=== PATIENT | male | born 1965 | race Two or more races ===

== ENCOUNTER 2021-05-23 12:24 | Inpatient (IN) | payer MEDICAID, OTHER ==
[~2021-05-23] VITALS: Ht 177.8 cm; Wt 98.9 kg
[2021-05-23 14:00] LABS: Hemoglobin 14.9 g/dL (13.5-17.5)
[2021-05-23 14:03] LABS: Hematocrit 43.1 % (41.0-53.0); Mean Corpuscular Hemoglobin 34.3 pg (28.0-32.0); Mean Corpuscular Hgb Conc. 34.6 g/dL (32.0-36.0); Mean Corpuscular Volume 99.4 fL (80.0-100.0); Red Blood Cells 4.34 10^6/uL (4.5-5.90); Red Cell Distribution Width 16.8 % (11.8-14.3); White Blood Cell 8.5 10^3/uL (4.4-10.8)
[2021-05-23 14:10] LABS: Basophils % (manual) 0 (0.0-2.0); Blast Cells 0; Eosinophils % (manual) 0 (0-7); Myelocytes % 0; Promyelocytes % 0; Reactive Lymphocytes 0
[2021-05-23 14:25] LABS: Band Neutrophils % (manual) 35; Lymphocytes % (manual) 7 (10.0-50.0); Metamyelocytes % 2; Monocytes % (manual) 9 (0-12)
[2021-05-23 14:27] LABS: Albumin 2.7 g/dL (3.4-5.0); Calcium 8.9 mg/dL (8.5-10.1); Magnesium 2.3 mg/dL (1.6-2.6); Potassium 3.5 mmol/L (3.5-5.1)
[2021-05-23 14:43] LABS: Total Protein 8.9 g/dL (6.4-8.2)
[2021-05-23] MEDS ORDERED: ASCORBIC ACID 500 MG TAB PO ONE (14:45)
[2021-05-23] MEDS ORDERED: CHOLECALCIFEROL (VITD3) 2,000 UNIT CAP/TAB PO ONE (14:45)
[2021-05-23] MEDS ORDERED: cefTRIAXone 1GM/50ML D5W 50 ML IV ONE (14:45)
[2021-05-23] MEDS ORDERED: DexAMETHasone SOD PHOS 10MG/1ML VIAL INJ IV ONE (14:45)
[2021-05-23] MEDS ORDERED: AZITHROMYCIN 500MG/ 250ML 250 ML IV ONE (14:45)
[2021-05-23] MEDS ORDERED: ZINC SULFATE 220mg CAP or TAB PO ONE (14:45)
[2021-05-23 16:30] LABS: Urine Bacteria NONE SEEN /hpf (None Seen); Urine Blood TRACE /uL (Negative); Urine Hyaline Cast FEW /lpf (0 - 2); Urine Mucus FEW (None Seen); Urine Specific Gravity 1.025 (1.001-1.035); Urine WBC 2 /hpf (0 - 3)
[2021-05-23] MEDS ORDERED: MORPHINE SULFATE INJECTION 2 MG/ML SYRG IV PRN (16:45)
[2021-05-23] MEDS ORDERED: HYDROcodone-ACET 5/325MG TAB PO ONE (16:45)
[2021-05-23] MEDS ORDERED: NITROGLYCERIN 0.4 MG SL TAB SL PRN (16:45)
[2021-05-23] MEDS ORDERED: HYDR-4795 PO (16:57)
[2021-05-23] MEDS ORDERED: OMEP20TA PO (17:01)
[2021-05-23 22:00] VITALS: BP 117/80
[2021-05-24] MEDS ORDERED: IBUPROFEN 600 MG TAB PO ONE (00:45)
[2021-05-24] MEDS ORDERED: FAMOTIDINE (10MG/ML) 2ML VL IV ONE (01:00)
[2021-05-24] MEDS ORDERED: REMDESIVIR PER PHARMACY 0 ML IV SCH (01:00)
[2021-05-24] MEDS ORDERED: MORPHINE SULFATE INJECTION 2 MG/ML SYRG IV PRN ×2 (01:00)
[2021-05-24] MEDS ORDERED: ACETAMINOPHEN 500 MG TAB PO PRN (01:00)
[2021-05-24] MEDS ORDERED: ONDANSETRON HCL 4 MG/2 ML VIAL IV PRN (01:00)
[2021-05-24] MEDS ORDERED: ALUM & MAG HYDROX-SIMETH LIQ(MAALOX) 30 ML PO PRN (01:00)
[2021-05-24] MEDS ORDERED: DOCUSATE SOD 100 MG CAP PO PRN (01:00)
[2021-05-24] MEDS ORDERED: LORazepam 0.5 MG TAB PO PRN (01:00)
[2021-05-24] MEDS ORDERED: NITROGLYCERIN 0.4 MG SL TAB SL PRN (01:00)
[2021-05-24] MEDS ORDERED: ALBUMIN 25% 100 ML IV ONE (01:00)
[2021-05-24] MEDS ORDERED: hydrALAZINE HCL 20 MG/ML VL IV PRN (01:15)
[2021-05-24] MEDS: guaiFENesin-DM 100/10mg/5ml SYR PO PRN ×4 (01:20→23:12)
[2021-05-24] MEDS: HYDROcodone-ACET 5/325MG TAB PO PRN ×4 (01:21→21:03)
[2021-05-24 05:50] VITALS: BP 106/74
[2021-05-24] MEDS ORDERED: ALBUMIN 25% 100 ML IV SCH (06:00)
[2021-05-24] MEDS: FUROSEMIDE 20 MG/2 ML VIAL IV SCH ×2 (06:08→17:49)
[2021-05-24 06:34] LABS: Basophils # (auto) 0 10 ^3/uL (0-0.2); Basophils % (auto) 0.1 % (0.0-2.0); Eosinophils # (auto) 0 10 ^3/uL (0-0.8); Lymphocytes # (auto) 0.2 10 ^3/uL (0.4-5.4); Lymphocytes % (auto) 2.5 % (10.0-50.0); Mean Corpuscular Hemoglobin 34.1 pg (28.0-32.0); Mean Corpuscular Volume 100.4 fL (80.0-100.0); Monocytes # (auto) 1.2 10 ^3/uL (0-1.3); Monocytes % (auto) 13.2 % (0.0-12.0); Neutrophils # (auto) 7.5 10 ^3/uL (1.6-8.6); Neutrophils % (auto) 84.2 % (37.0-80.0); Nucleated Red Blood Cells % 0.2 %; Red Blood Cells 4.39 10^6/uL (4.5-5.90); Red Cell Distribution Width 16.1 % (11.8-14.3); White Blood Cell 8.9 10^3/uL (4.4-10.8)
[2021-05-24 06:43] LABS: INR 0.99 (0.9-1.15); Partial Thromboplastin Time 26.3 sec (23.6-33.0)
[2021-05-24 06:52] LABS: Chloride 93 mmol/L (98-107); Potassium 3.8 mmol/L (3.5-5.1); Sodium 130 mmol/L (136-145)
[2021-05-24 07:01] LABS: Alanine Aminotransferase 46 U/L (16-61); Albumin 2.9 g/dL (3.4-5.0); Alkaline Phosphatase 75 U/L (45-117); Anion Gap 5 (5-15); Aspartate Aminotransferase 74 U/L (15-37); BUN/Creatinine Ratio 14.3; Bilirubin, Total 0.9 mg/dL (0.2-1.0); Blood Urea Nitrogen 13 mg/dL (7-18); Calcium 9.3 mg/dL (8.5-10.1); Carbon Dioxide 32 mmol/L (21-32); Cholesterol 108 mg/dL (< 200); GFR African American 112 mL/min; GFR Non-African American 92 mL/min; Glucose 271 mg/dL (74-106); HDL Cholesterol 30 mg/dL (40-59); LDL Cholesterol 64 mg/dL (< 100); Magnesium 3.2 mg/dL (1.6-2.6); Phosphorus 2.2 mg/dL (2.5-4.90); Total Protein 8.8 g/dL (6.4-8.2); Triglycerides 94 mg/dL (< 150); Uric Acid 6.7 mg/dL (3.5-7.2)
[2021-05-24 07:17] LABS: Thyroid Stimulating Hormone 0.34 uIU/mL (0.358-3.74)
[2021-05-24 09:00] VITALS: BP 114/82
[2021-05-24 09:37] LABS: Free T3 2.38 pg/mL (2.3-4.2); Free T4 (Free Thyroxine) 1.29 ng/dL (0.89-1.76)
[2021-05-24] MEDS: FAMOTIDINE (10MG/ML) 2ML VL IV SCH ×2 (09:50→21:01)
[2021-05-24] MEDS: CHOLECALCIFEROL (VITD3) 2,000 UNIT CAP/TAB PO SCH (09:51)
[2021-05-24] MEDS: ASCORBIC ACID 1,000 MG TAB PO SCH (09:51)
[2021-05-24] MEDS: ENOXAPARIN SOD 40 MG/0.4 ML SYRINGE SC SCH ×2 (09:51→21:02)
[2021-05-24] MEDS: DexAMETHasone SOD PHOS 10MG/1ML VIAL INJ IV SCH (09:51)
[2021-05-24] MEDS: ZINC SULFATE 220mg CAP or TAB PO SCH (09:51)
[2021-05-24] MEDS: ASPirin 81 mg TAB PO SCH (09:51)
[2021-05-24] MEDS: IVERMECTIN 3 MG TAB PO SCH (09:51)
[2021-05-24] MEDS: BUDESONIDE (INHALATION) 180 MCG IH IN SCH ×2 (10:00→19:38)
[2021-05-24] MEDS ORDERED: POTASSIUM CHL 20 Meq TABLET PO SCH (10:00)
[2021-05-24] MEDS ORDERED: REMDESIVIR 200 MG in NS 210ml LOADING DOSE ADULT IV ONE (10:00)
[2021-05-24] MEDS ORDERED: AZITHROMYCIN 500MG/ 250ML 250 ML IV SCH (10:00)
[2021-05-24 10:26] LABS: CRP High Sensitivity > 19.0 mg/dL (< 0.3)
[2021-05-24 13:00] VITALS: BP 112/71
[2021-05-24] MEDS ORDERED: DEXTROSE (50%) 50ML SYRG IV PRN (14:00)
[2021-05-24 16:02] LABS: Hepatitis B Surface Antibody Negative (Negative)
[2021-05-24 16:41] LABS: Hepatitis A Total Antibody Negative (Negative)
[2021-05-24 16:50] LABS: Hepatitis C Antibody Positive (Negative)
[2021-05-24 17:07] VITALS: BP 115/79
[2021-05-24] MEDS: InsuLIN REG 1unit/0.01ml Soln (100units/ml) SC SCH ×2 (17:44→23:21)
[2021-05-24] MEDS: ACCU-CHEK COMFORT CURVE STRIP VI SCH ×2 (17:44→23:25)
[2021-05-24] MEDS: ALBUTEROL SULF HFA 90MCG INH 200DOSE IN PRN (19:38)
[2021-05-24] MEDS: POTASSIUM CHL 10 Meq TABLET PO SCH (21:02)
[2021-05-24] MEDS ORDERED: ATORVASTATIN 20 MG TAB PO SCH (22:00)
[2021-05-24 22:07] VITALS: BP 115/73
[2021-05-25] MEDS: HYDROcodone-ACET 5/325MG TAB PO PRN ×3 (03:41→22:37)
[2021-05-25 05:00] VITALS: BP 116/86
[2021-05-25] MEDS: FUROSEMIDE 20 MG/2 ML VIAL IV SCH ×2 (05:12→18:07)
[2021-05-25] MEDS: ACCU-CHEK COMFORT CURVE STRIP VI SCH ×4 (05:13→22:52)
[2021-05-25] MEDS: InsuLIN REG 1unit/0.01ml Soln (100units/ml) SC SCH ×4 (05:21→22:56)
[2021-05-25 06:07] LABS: Basophils # (auto) 0 10 ^3/uL (0-0.2); Basophils % (auto) 0.1 % (0.0-2.0); Eosinophils # (auto) 0 10 ^3/uL (0-0.8); Hematocrit 40.6 % (41.0-53.0); Hemoglobin 13.8 g/dL (13.5-17.5); Lymphocytes # (auto) 0.4 10 ^3/uL (0.4-5.4); Lymphocytes % (auto) 3.3 % (10.0-50.0); Mean Corpuscular Hemoglobin 33.9 pg (28.0-32.0); Mean Corpuscular Hgb Conc. 33.9 g/dL (32.0-36.0); Mean Corpuscular Volume 100.1 fL (80.0-100.0); Monocytes # (auto) 1.5 10 ^3/uL (0-1.3); Monocytes % (auto) 12.9 % (0.0-12.0); Neutrophils % (auto) 83.7 % (37.0-80.0); Red Blood Cells 4.05 10^6/uL (4.5-5.90); Red Cell Distribution Width 16.4 % (11.8-14.3); White Blood Cell 11.9 10^3/uL (4.4-10.8)
[2021-05-25 06:30] LABS: INR 0.95 (0.9-1.15); Potassium 3.7 mmol/L (3.5-5.1)
[2021-05-25 06:37] LABS: Thyroid Stimulating Hormone 0.32 uIU/mL (0.358-3.74)
[2021-05-25 06:53] LABS: BUN/Creatinine Ratio 29.3; Bilirubin, Direct 0.3 mg/dL (0-0.2); Bilirubin, Total 0.5 mg/dL (0.2-1.0); CRP High Sensitivity 9.62 mg/dL (< 0.3); Calcium 9.6 mg/dL (8.5-10.1); Magnesium 2.2 mg/dL (1.6-2.6); Total Protein 7.5 g/dL (6.4-8.2)
[2021-05-25] MEDS: BUDESONIDE (INHALATION) 180 MCG IH IN SCH ×2 (07:18→22:00)
[2021-05-25 09:00] VITALS: BP 111/86
[2021-05-25] MEDS: ZINC SULFATE 220mg CAP or TAB PO SCH (10:00)
[2021-05-25] MEDS: DexAMETHasone SOD PHOS 10MG/1ML VIAL INJ IV SCH (11:09)
[2021-05-25] MEDS: FAMOTIDINE (10MG/ML) 2ML VL IV SCH ×2 (11:10→22:35)
[2021-05-25] MEDS: IVERMECTIN 3 MG TAB PO SCH (11:10)
[2021-05-25] MEDS: POTASSIUM CHL 10 Meq TABLET PO SCH ×2 (11:10→22:36)
[2021-05-25] MEDS: ASPirin 81 mg TAB PO SCH (11:10)
[2021-05-25] MEDS: CHOLECALCIFEROL (VITD3) 2,000 UNIT CAP/TAB PO SCH (11:11)
[2021-05-25] MEDS: ASCORBIC ACID 1,000 MG TAB PO SCH (11:11)
[2021-05-25] MEDS: AZITHROMYCIN 250 MG TAB PO SCH (11:11)
[2021-05-25] MEDS: ENOXAPARIN SOD 40 MG/0.4 ML SYRINGE SC SCH ×2 (11:12→22:36)
[2021-05-25] MEDS: guaiFENesin-DM 100/10mg/5ml SYR PO PRN ×2 (11:13→18:49)
[2021-05-25 12:30] VITALS: BP 128/93
[2021-05-25] MEDS ORDERED: cefTRIAXone 1GM/50ML D5W 50 ML IV ONE (14:30)
[2021-05-25] MEDS: REMDESIVIR 100mg 100 MG in SODIUM CHL 0.9% 230 ML IV SCH (15:00)
[2021-05-25 17:00] VITALS: BP 121/86
[2021-05-25 22:00] VITALS: BP 128/95
[2021-05-26 05:00] VITALS: BP 133/91
[2021-05-26] MEDS: ACCU-CHEK COMFORT CURVE STRIP VI SCH ×4 (05:31→23:12)
[2021-05-26] MEDS: FUROSEMIDE 20 MG/2 ML VIAL IV SCH ×2 (05:31→18:05)
[2021-05-26 05:34] LABS: Basophils # (auto) 0 10 ^3/uL (0-0.2); Basophils % (auto) 0.4 % (0.0-2.0); Eosinophils # (auto) 0 10 ^3/uL (0-0.8); Eosinophils % (auto) 0.2 % (0.0-7.0); Hematocrit 41.5 % (41.0-53.0); Hemoglobin 14.1 g/dL (13.5-17.5); Lymphocytes # (auto) 0.9 10 ^3/uL (0.4-5.4); Lymphocytes % (auto) 10.9 % (10.0-50.0); Mean Corpuscular Hgb Conc. 33.9 g/dL (32.0-36.0); Mean Corpuscular Volume 100.4 fL (80.0-100.0); Monocytes # (auto) 1.2 10 ^3/uL (0-1.3); Neutrophils # (auto) 6.3 10 ^3/uL (1.6-8.6); Neutrophils % (auto) 74.5 % (37.0-80.0); Nucleated Red Blood Cells % 0.1 %; Red Blood Cells 4.14 10^6/uL (4.5-5.90); Red Cell Distribution Width 16.6 % (11.8-14.3); White Blood Cell 8.5 10^3/uL (4.4-10.8)
[2021-05-26] MEDS: InsuLIN REG 1unit/0.01ml Soln (100units/ml) SC SCH ×4 (05:39→23:19)
[2021-05-26 05:49] LABS: Albumin 2.6 g/dL (3.4-5.0); Calcium 8.8 mg/dL (8.5-10.1); Potassium 3.5 mmol/L (3.5-5.1)
[2021-05-26 05:53] LABS: Bilirubin, Total 0.5 mg/dL (0.2-1.0)
[2021-05-26] MEDS: BUDESONIDE (INHALATION) 180 MCG IH IN SCH ×2 (06:26→20:49)
[2021-05-26] MEDS: HYDROcodone-ACET 5/325MG TAB PO PRN ×4 (06:52→23:13)
[2021-05-26] MEDS: guaiFENesin-DM 100/10mg/5ml SYR PO PRN (06:58)
[2021-05-26 09:00] VITALS: BP 113/81
[2021-05-26] MEDS: FAMOTIDINE (10MG/ML) 2ML VL IV SCH ×2 (10:41→21:34)
[2021-05-26] MEDS: cefTRIAXone 1GM/50ML D5W 50 ML IV SCH (10:41)
[2021-05-26] MEDS: DexAMETHasone SOD PHOS 10MG/1ML VIAL INJ IV SCH (10:41)
[2021-05-26] MEDS: ZINC SULFATE 220mg CAP or TAB PO SCH (10:42)
[2021-05-26] MEDS: POTASSIUM CHL 10 Meq TABLET PO SCH ×2 (10:42→21:34)
[2021-05-26] MEDS: ASCORBIC ACID 1,000 MG TAB PO SCH (10:42)
[2021-05-26] MEDS: IVERMECTIN 3 MG TAB PO SCH (10:42)
[2021-05-26] MEDS: ASPirin 81 mg TAB PO SCH (10:42)
[2021-05-26] MEDS: CHOLECALCIFEROL (VITD3) 2,000 UNIT CAP/TAB PO SCH (10:43)
[2021-05-26] MEDS: ENOXAPARIN SOD 40 MG/0.4 ML SYRINGE SC SCH ×2 (10:43→21:35)
[2021-05-26] MEDS: AZITHROMYCIN 250 MG TAB PO SCH (10:43)
[2021-05-26 13:00] VITALS: BP 127/90
[2021-05-26] MEDS: REMDESIVIR 100mg 100 MG in SODIUM CHL 0.9% 230 ML IV SCH (14:55)
[2021-05-26 16:37] VITALS: BP 107/61
[2021-05-26] MEDS: IBUPROFEN 600 MG TAB PO SCH (21:34)
[2021-05-26 22:00] VITALS: BP 135/88
[2021-05-27 05:00] VITALS: BP 141/79
[2021-05-27] MEDS: ACCU-CHEK COMFORT CURVE STRIP VI SCH ×4 (05:36→23:34)
[2021-05-27] MEDS: FUROSEMIDE 20 MG/2 ML VIAL IV SCH ×2 (05:36→18:07)
[2021-05-27] MEDS: InsuLIN REG 1unit/0.01ml Soln (100units/ml) SC SCH ×4 (05:39→23:35)
[2021-05-27] MEDS: HYDROcodone-ACET 5/325MG TAB PO PRN ×4 (05:42→23:34)
[2021-05-27 06:01] LABS: Potassium 3.9 mmol/L (3.5-5.1)
[2021-05-27 06:17] LABS: Albumin 2.6 g/dL (3.4-5.0); BUN/Creatinine Ratio 32.5; Bilirubin, Total 0.5 mg/dL (0.2-1.0); Total Protein 6.8 g/dL (6.4-8.2)
[2021-05-27] MEDS: BUDESONIDE (INHALATION) 180 MCG IH IN SCH ×2 (06:28→21:52)
[2021-05-27 08:57] VITALS: BP 120/77
[2021-05-27] MEDS: cefTRIAXone 1GM/50ML D5W 50 ML IV SCH (10:12)
[2021-05-27] MEDS: FAMOTIDINE (10MG/ML) 2ML VL IV SCH ×2 (10:12→21:30)
[2021-05-27] MEDS: DexAMETHasone SOD PHOS 10MG/1ML VIAL INJ IV SCH (10:12)
[2021-05-27] MEDS: ZINC SULFATE 220mg CAP or TAB PO SCH (10:13)
[2021-05-27] MEDS: ASPirin 81 mg TAB PO SCH (10:13)
[2021-05-27] MEDS: POTASSIUM CHL 10 Meq TABLET PO SCH ×2 (10:13→21:30)
[2021-05-27] MEDS: IVERMECTIN 3 MG TAB PO SCH (10:14)
[2021-05-27] MEDS: ASCORBIC ACID 1,000 MG TAB PO SCH (10:14)
[2021-05-27] MEDS: IBUPROFEN 600 MG TAB PO SCH ×2 (10:14→21:30)
[2021-05-27] MEDS: AZITHROMYCIN 250 MG TAB PO SCH (10:14)
[2021-05-27] MEDS: CHOLECALCIFEROL (VITD3) 2,000 UNIT CAP/TAB PO SCH (10:14)
[2021-05-27] MEDS: ENOXAPARIN SOD 40 MG/0.4 ML SYRINGE SC SCH ×2 (10:15→21:31)
[2021-05-27] MEDS: guaiFENesin-DM 100/10mg/5ml SYR PO PRN ×2 (10:23→18:17)
[2021-05-27 13:00] VITALS: BP 136/93
[2021-05-27] MEDS: REMDESIVIR 100mg 100 MG in SODIUM CHL 0.9% 230 ML IV SCH (15:31)
[2021-05-27 17:00] VITALS: BP 145/92
[2021-05-27 22:19] VITALS: BP 132/90
[2021-05-28] MEDS: FUROSEMIDE 20 MG/2 ML VIAL IV SCH (05:14)
[2021-05-28] MEDS: HYDROcodone-ACET 5/325MG TAB PO PRN ×3 (05:15→15:16)
[2021-05-28] MEDS: ACCU-CHEK COMFORT CURVE STRIP VI SCH ×2 (05:15→12:27)
[2021-05-28] MEDS: InsuLIN REG 1unit/0.01ml Soln (100units/ml) SC SCH ×2 (05:24→12:39)
[2021-05-28 05:28] VITALS: BP 129/84
[2021-05-28 06:21] LABS: Basophils # (auto) 0 10 ^3/uL (0-0.2); Basophils % (auto) 0.3 % (0.0-2.0); Eosinophils # (auto) 0.1 10 ^3/uL (0-0.8); Eosinophils % (auto) 0.9 % (0.0-7.0); Hemoglobin 15.3 g/dL (13.5-17.5); Lymphocytes # (auto) 1.3 10 ^3/uL (0.4-5.4); Lymphocytes % (auto) 13.5 % (10.0-50.0); Mean Corpuscular Hemoglobin 33.5 pg (28.0-32.0); Mean Corpuscular Hgb Conc. 33.2 g/dL (32.0-36.0); Mean Corpuscular Volume 100.9 fL (80.0-100.0); Monocytes # (auto) 1.3 10 ^3/uL (0-1.3); Monocytes % (auto) 13.4 % (0.0-12.0); Neutrophils % (auto) 71.9 % (37.0-80.0); Nucleated Red Blood Cells % 0.1 %; Red Blood Cells 4.56 10^6/uL (4.5-5.90); White Blood Cell 9.8 10^3/uL (4.4-10.8)
[2021-05-28 06:44] LABS: Potassium 4.1 mmol/L (3.5-5.1)
[2021-05-28] MEDS: ALBUTEROL SULF HFA 90MCG INH 200DOSE IN PRN (06:55)
[2021-05-28 06:56] LABS: Albumin 3.1 g/dL (3.4-5.0); BUN/Creatinine Ratio 27.1; Bilirubin, Total 0.5 mg/dL (0.2-1.0); CRP High Sensitivity 1.54 mg/dL (< 0.3); Calcium 9.2 mg/dL (8.5-10.1); Total Protein 7.8 g/dL (6.4-8.2)
[2021-05-28] MEDS: BUDESONIDE (INHALATION) 180 MCG IH IN SCH (06:56)
[2021-05-28 08:00] VITALS: BP 118/79
[2021-05-28] MEDS: ASPirin 81 mg TAB PO SCH (08:49)
[2021-05-28] MEDS: CHOLECALCIFEROL (VITD3) 2,000 UNIT CAP/TAB PO SCH (08:49)
[2021-05-28] MEDS: ZINC SULFATE 220mg CAP or TAB PO SCH (08:49)
[2021-05-28] MEDS: ASCORBIC ACID 1,000 MG TAB PO SCH (08:50)
[2021-05-28] MEDS: POTASSIUM CHL 10 Meq TABLET PO SCH (08:50)
[2021-05-28] MEDS: IVERMECTIN 3 MG TAB PO SCH (08:51)
[2021-05-28] MEDS: cefTRIAXone 1GM/50ML D5W 50 ML IV SCH (08:51)
[2021-05-28] MEDS: ENOXAPARIN SOD 40 MG/0.4 ML SYRINGE SC SCH (08:52)
[2021-05-28] MEDS: FAMOTIDINE (10MG/ML) 2ML VL IV SCH (08:52)
[2021-05-28] MEDS: DexAMETHasone SOD PHOS 10MG/1ML VIAL INJ IV SCH (08:52)
[2021-05-28 09:00] VITALS: BP 118/79
[2021-05-28] MEDS: IBUPROFEN 600 MG TAB PO SCH (10:00)
[2021-05-28] MEDS: AZITHROMYCIN 250 MG TAB PO SCH (10:27)
[2021-05-28 12:48] VITALS: BP 134/84
[2021-05-28] MEDS ORDERED: BUDE2SUS3 IN (13:19)
[2021-05-28] MEDS ORDERED: ASCO10003 PO (13:19)
[2021-05-28] MEDS ORDERED: CHOL20007 PO (13:19)
[2021-05-28] MEDS ORDERED: ALBUAER3 IN (13:19)
[2021-05-28] MEDS ORDERED: FAMO20TA10 PO (13:19)
[2021-05-28] MEDS ORDERED: DEXT1SYP9 PO (13:19)
[2021-05-28] MEDS ORDERED: DOXY-286 PO (13:19)
[2021-05-28] MEDS ORDERED: DEX4T PO (13:19)
[2021-05-28] MEDS ORDERED: ASPI-378 PO (13:19)
[2021-05-28] MEDS ORDERED: ZINC220T6 PO (13:19)
[2021-05-28] MEDS: REMDESIVIR 100mg 100 MG in SODIUM CHL 0.9% 230 ML IV SCH (15:00)
[2021-05-28 16:56] VITALS: BP 145/92
== END 2021-05-28 18:00 | disposition home or self-care (01) | DRG 720 ==
LOC: ER 12:24 → TELE 16:40 → TELE-EAST 19:07
PROVIDERS: ADMIT Hospitalist; ATTEND Internal Medicine
PROC: XW033E5 Introduction of Remdesivir Anti-infective into Peripheral Vein, Percutaneous Approach, New Technology Group 5 (ICD-10-PCS; principal; 2021-05-24)
DX: A41.89 Other specified sepsis (principal); J96.01 Acute respiratory failure with hypoxia; J12.82 Pneumonia due to coronavirus disease 2019; U07.1 COVID-19; D89.839 Cytokine release syndrome, grade unspecified; E87.1 Hypo-osmolality and hyponatremia; R65.20 Severe sepsis without septic shock; E88.81 Metabolic syndrome and other insulin resistance; E66.01 Morbid (severe) obesity due to excess calories; B18.2 Chronic viral hepatitis C; E88.09 Other disorders of plasma-protein metabolism, not elsewhere classified; E55.9 Vitamin D deficiency, unspecified; E78.5 Hyperlipidemia, unspecified; F10.10 Alcohol abuse, uncomplicated; G89.29 Other chronic pain; I10 Essential (primary) hypertension; M19.90 Unspecified osteoarthritis, unspecified site; K21.9 Gastro-esophageal reflux disease without esophagitis; Z68.31 Body mass index [BMI] 31.0-31.9, adult
CPT/HCPCS: 36415; 36600; 71045; 80053; 80061; 80076; 81001; 82306; 82728; 82805; 82962; 83036; 83605; 83615; 83735; 83880; 84100; 84439; 84443; 84481; 84484; 84550; 85007; 85025; 85027; 85379; 85610; 85730; 86141; 86704; 86706; 86708; 86803; 87040; 87340; 87426; 93005; 93970; 94640; 96365; 96368; 96375; G0378; J0696; J1100; J1815; J3490; P9047

== ENCOUNTER 2021-07-25 16:59 | Emergency (ER) | payer MEDICAID ==
[~2021-07-25] VITALS: Ht 177.8 cm; Wt 99.8 kg
[~2021-07-25 16:59] MED LIST: ALBUAER3 IN; ASCO10003 PO; ASPI-378 PO; BUDE2SUS3 IN; DEX4T PO; DEXT1SYP9 PO; DOXY-286 PO; HYDR-4795 PO; OMEP20TA PO; ZINC220T6 PO
[2021-07-25 17:15] VITALS: BP 106/78
[2021-07-25] MEDS ORDERED: traMADol HCL 50 MG TAB PO ONE (19:00)
== END 2021-07-25 21:33 | disposition home or self-care (01) ==
LOC: ER 17:03
DX: S80.01XA Contusion of right knee, initial encounter (principal); S40.011A Contusion of right shoulder, initial encounter; J44.9 Chronic obstructive pulmonary disease, unspecified; E11.9 Type 2 diabetes mellitus without complications; I10 Essential (primary) hypertension; F17.210 Nicotine dependence, cigarettes, uncomplicated; W18.39XA Other fall on same level, initial encounter; Y93.89 Activity, other specified; Y92.89 Other specified places as the place of occurrence of the external cause; Y99.8 Other external cause status
CPT/HCPCS: 73030; 73560

== ENCOUNTER 2022-01-19 12:25 | Inpatient (IN) | payer MEDICAID ==
[~2022-01-19] VITALS: Ht 182.9 cm; Wt 88.3 kg
[2022-01-19 16:05] LABS: Basophils # (auto) 0 10 ^3/uL (0-0.2); Eosinophils # (auto) 0 10 ^3/uL (0-0.8); Lymphocytes # (auto) 0.5 10 ^3/uL (0.4-5.4); Mean Corpuscular Volume 108.7 fL (80.0-100.0); Monocytes # (auto) 0.6 10 ^3/uL (0-1.3)
[2022-01-19 16:06] LABS: Basophils % (auto) 0.5 % (0.0-2.0); Eosinophils % (auto) 0.1 % (0.0-7.0); Hematocrit 46.6 % (41.0-53.0); Hemoglobin 15.7 g/dL (13.5-17.5); Lymphocytes % (auto) 8.8 % (10.0-50.0); Mean Corpuscular Hemoglobin 36.6 pg (28.0-32.0); Mean Corpuscular Hgb Conc. 33.6 g/dL (32.0-36.0); Monocytes % (auto) 9.3 % (0.0-12.0); Neutrophils # (auto) 4.9 10 ^3/uL (1.6-8.6); Neutrophils % (auto) 81.3 % (37.0-80.0); Nucleated Red Blood Cells % 0.1 %; Red Blood Cells 4.28 10^6/uL (4.5-5.90); Red Cell Distribution Width 13.4 % (11.8-14.3)
[2022-01-19 16:25] LABS: Albumin 3.3 g/dL (3.4-5.0); Calcium 10.4 mg/dL (8.5-10.1); Potassium 3.4 mmol/L (3.5-5.1)
[2022-01-19 16:29] LABS: Bilirubin, Total 1.9 mg/dL (0.2-1.0); Total Protein 8.5 g/dL (6.4-8.2)
[2022-01-19 16:38] LABS: BUN/Creatinine Ratio 10.6
[2022-01-19] MEDS ORDERED: PROMETHAZINE HCL 25 MG/ML 1ML IV ONE (17:15)
[2022-01-19] MEDS ORDERED: MORPHINE SULFATE 4 MG/ML SYR/VIAL IV ONE (17:15)
[2022-01-19] MEDS ORDERED: POTASSIUM CHL 20 Meq TABLET PO ONE (23:15)
[2022-01-19] MEDS ORDERED: TEMAZEPAM 15 MG CAP PO PRN (23:15)
[2022-01-19] MEDS ORDERED: DEXTROSE (50%) 50ML SYRG IV PRN (23:15)
[2022-01-19] MEDS ORDERED: hydrALAZINE HCL 20 MG/ML VL IV PRN (23:15)
[2022-01-19] MEDS ORDERED: MORPHINE SULFATE INJ 2 MG/ml SYRG IV PRN (23:15)
[2022-01-19] MEDS ORDERED: NITROGLYCERIN 0.4 MG SL TAB SL PRN (23:15)
[2022-01-20] VITALS (7 sets, daily range): BP systolic 149–166; BP diastolic 103–121
[2022-01-20] MEDS: SODIUM CHLORIDE 0.9% 1,000 ML IV SCH ×2 (00:17→09:04)
[2022-01-20] MEDS: ACCU-CHEK COMFORT CURVE STRIP VI SCH ×5 (00:48→23:17)
[2022-01-20] MEDS: IBUPROFEN 600 MG TAB PO PRN ×2 (00:49→06:38)
[2022-01-20] MEDS: InsuLIN REG 1unit/0.01ml Soln (100units/ml) SC SCH ×5 (01:05→23:16)
[2022-01-20] MEDS: MORPHINE SULFATE INJ 2 MG/ml SYRG IV PRN ×5 (03:57→21:49)
[2022-01-20 06:36] LABS: Basophils # (auto) 0 10 ^3/uL (0-0.2); Basophils % (auto) 0.5 % (0.0-2.0); Eosinophils # (auto) 0 10 ^3/uL (0-0.8); Eosinophils % (auto) 0.1 % (0.0-7.0); Hematocrit 40.9 % (41.0-53.0); Hemoglobin 14.4 g/dL (13.5-17.5); Lymphocytes # (auto) 0.7 10 ^3/uL (0.4-5.4); Lymphocytes % (auto) 9.4 % (10.0-50.0); Mean Corpuscular Hemoglobin 38.2 pg (28.0-32.0); Mean Corpuscular Hgb Conc. 35.2 g/dL (32.0-36.0); Mean Corpuscular Volume 108.6 fL (80.0-100.0); Monocytes # (auto) 0.6 10 ^3/uL (0-1.3); Monocytes % (auto) 8.1 % (0.0-12.0); Neutrophils # (auto) 5.7 10 ^3/uL (1.6-8.6); Neutrophils % (auto) 81.9 % (37.0-80.0); Nucleated Red Blood Cells % 0.2 %; Red Blood Cells 3.77 10^6/uL (4.5-5.90); Red Cell Distribution Width 13.3 % (11.8-14.3); White Blood Cell 6.9 10^3/uL (4.4-10.8)
[2022-01-20] MEDS: ONDANSETRON HCL 4 MG/2 ML VIAL IV PRN ×2 (06:38→17:10)
[2022-01-20 06:53] LABS: Potassium 3.3 mmol/L (3.5-5.1)
[2022-01-20 07:00] LABS: BUN/Creatinine Ratio 15.4; Bilirubin, Total 1.4 mg/dL (0.2-1.0); Calcium 9.3 mg/dL (8.5-10.1); Total Protein 7.6 g/dL (6.4-8.2)
[2022-01-20 07:31] LABS: Urine Bacteria NONE SEEN /hpf (None Seen); Urine Blood Negative /uL (Negative); Urine Mucus FEW (None Seen); Urine Specific Gravity 1.019 (1.001-1.035); Urine WBC 2 /hpf (0 - 3)
[2022-01-20] MEDS: FAMOTIDINE (10MG/ML) 2ML VL IV SCH ×2 (08:58→21:47)
[2022-01-20] MEDS: ENOXAPARIN SOD 40 MG/0.4 ML SYRINGE SC SCH (09:00)
[2022-01-20] MEDS: LACTATED RINGER'S 1,000 ML IV SCH ×2 (12:15→21:48)
[2022-01-21] MEDS: LACTATED RINGER'S 1,000 ML IV SCH ×4 (01:45→21:35)
[2022-01-21] MEDS: MORPHINE SULFATE INJ 2 MG/ml SYRG IV PRN ×5 (02:12→23:48)
[2022-01-21 05:00] VITALS: BP 145/109
[2022-01-21] MEDS: ACCU-CHEK COMFORT CURVE STRIP VI SCH ×4 (06:00→23:37)
[2022-01-21 06:08] LABS: Basophils # (auto) 0 10 ^3/uL (0-0.2); Basophils % (auto) 0.5 % (0.0-2.0); Mean Corpuscular Hemoglobin 38.4 pg (28.0-32.0); Monocytes # (auto) 0.6 10 ^3/uL (0-1.3)
[2022-01-21 06:10] LABS: Eosinophils # (auto) 0 10 ^3/uL (0-0.8); Eosinophils % (auto) 0.6 % (0.0-7.0); Hematocrit 41.3 % (41.0-53.0); Hemoglobin 14.5 g/dL (13.5-17.5); Lymphocytes # (auto) 0.6 10 ^3/uL (0.4-5.4); Lymphocytes % (auto) 8.9 % (10.0-50.0); Mean Corpuscular Hgb Conc. 35.1 g/dL (32.0-36.0); Mean Corpuscular Volume 109.6 fL (80.0-100.0); Monocytes % (auto) 8.7 % (0.0-12.0); Neutrophils # (auto) 5.8 10 ^3/uL (1.6-8.6); Neutrophils % (auto) 81.3 % (37.0-80.0); Nucleated Red Blood Cells % 0.1 %; Red Blood Cells 3.77 10^6/uL (4.5-5.90); Red Cell Distribution Width 13.1 % (11.8-14.3); White Blood Cell 7.2 10^3/uL (4.4-10.8)
[2022-01-21 06:17] LABS: Albumin 2.8 g/dL (3.4-5.0); Calcium 8.7 mg/dL (8.5-10.1); Potassium 3.7 mmol/L (3.5-5.1)
[2022-01-21 06:26] LABS: BUN/Creatinine Ratio 9.6; Bilirubin, Total 1.5 mg/dL (0.2-1.0); Total Protein 7.7 g/dL (6.4-8.2)
[2022-01-21] MEDS: InsuLIN REG 1unit/0.01ml Soln (100units/ml) SC SCH ×4 (06:30→23:56)
[2022-01-21 09:00] VITALS: BP 141/108
[2022-01-21] MEDS: FAMOTIDINE (10MG/ML) 2ML VL IV SCH ×2 (09:59→21:37)
[2022-01-21] MEDS: ENOXAPARIN SOD 40 MG/0.4 ML SYRINGE SC SCH (10:00)
[2022-01-21 12:35] VITALS: BP 142/90
[2022-01-21 16:45] VITALS: BP 133/98
[2022-01-21 22:00] VITALS: BP 142/102
[2022-01-22] MEDS: LACTATED RINGER'S 1,000 ML IV SCH ×3 (04:15→17:35)
[2022-01-22] MEDS: ACCU-CHEK COMFORT CURVE STRIP VI SCH ×3 (04:41→18:13)
[2022-01-22] MEDS: MORPHINE SULFATE INJ 2 MG/ml SYRG IV PRN ×2 (04:41→10:29)
[2022-01-22] MEDS: InsuLIN REG 1unit/0.01ml Soln (100units/ml) SC SCH ×3 (04:52→18:15)
[2022-01-22 05:00] VITALS: BP 140/102
[2022-01-22 05:58] LABS: Calcium 8.3 mg/dL (8.5-10.1); Potassium 3.8 mmol/L (3.5-5.1)
[2022-01-22 06:05] LABS: Albumin 2.5 g/dL (3.4-5.0); BUN/Creatinine Ratio 10.4; Bilirubin, Total 2.2 mg/dL (0.2-1.0); Total Protein 7.3 g/dL (6.4-8.2)
[2022-01-22 07:30] VITALS: BP 139/98
[2022-01-22 09:00] VITALS: BP 138/98
[2022-01-22] MEDS: FAMOTIDINE (10MG/ML) 2ML VL IV SCH (10:27)
[2022-01-22] MEDS: GABAPENTIN 300 MG CAP PO SCH ×2 (10:27→13:36)
[2022-01-22 13:00] VITALS: BP 133/93
[2022-01-22] MEDS ORDERED: methylPREDNISolone SOD SUCC 40 MG/ML VL IV ONE (15:00)
[2022-01-22] MEDS ORDERED: COLC0.6T56 PO (15:04)
[2022-01-22 17:00] VITALS: BP 121/85
[2022-01-22 17:07] VITALS: BP 155/113
[2022-01-22] MEDS ORDERED: COLCHICINE 0.6 MG CAP PO SCH (22:00)
== END 2022-01-22 18:50 | disposition home or self-care (01) | DRG 282 ==
LOC: ER 12:25 → EAST 23:06
PROVIDERS: ADMIT Nurse Practitioner Family; ATTEND Hospitalist
DX: K85.20 Alcohol induced acute pancreatitis without necrosis or infection (principal); K76.0 Fatty (change of) liver, not elsewhere classified; E87.1 Hypo-osmolality and hyponatremia; I10 Essential (primary) hypertension; E87.6 Hypokalemia; N20.0 Calculus of kidney; K40.90 Unilateral inguinal hernia, without obstruction or gangrene, not specified as recurrent; E11.65 Type 2 diabetes mellitus with hyperglycemia; K44.9 Diaphragmatic hernia without obstruction or gangrene; Z20.822 Contact with and (suspected) exposure to COVID-19; J44.9 Chronic obstructive pulmonary disease, unspecified; Z80.9 Family history of malignant neoplasm, unspecified; Z83.3 Family history of diabetes mellitus
CPT/HCPCS: 36415; 74176; 80053; 80061; 81001; 82150; 82962; 83605; 83690; 85025; 87040; 93005; 96372; 96374; 96375; G0378; J1815; J2405; J3490; J7042

== ENCOUNTER 2022-06-02 21:36 | Inpatient (IN) | payer MEDICAID ==
[~2022-06-02] VITALS: Ht 177.8 cm; Wt 91.0 kg
[~2022-06-02 21:36] MED LIST changes: -ASCO10003 PO; -BUDE2SUS3 IN; +COLC0.6T56 PO; -DEX4T PO; -DEXT1SYP9 PO; -DOXY-286 PO; -ZINC220T6 PO
[2022-06-02] MEDS ORDERED: SODIUM CHLORIDE 0.9% 1,000 ML IV ONE ×2 (21:45)
[2022-06-02] MEDS ORDERED: ONDANSETRON HCL 4 MG/2 ML VIAL IV ONE (22:00)
[2022-06-02] MEDS ORDERED: ONDANSETRON ODT 4 MG TAB PO ONE (22:00)
[2022-06-02 22:18] LABS: Basophils # (auto) 0 10 ^3/uL (0-0.2); Eosinophils # (auto) 0 10 ^3/uL (0-0.8); Lymphocytes # (auto) 0.5 10 ^3/uL (0.4-5.4); Monocytes # (auto) 0.3 10 ^3/uL (0-1.3)
[2022-06-02 22:22] LABS: Basophils % (auto) 0.4 % (0.0-2.0); Eosinophils % (auto) 0.4 % (0.0-7.0); Hematocrit 39.3 % (41.0-53.0); Hemoglobin 13.6 g/dL (13.5-17.5); Lymphocytes % (auto) 15.2 % (10.0-50.0); Mean Corpuscular Hemoglobin 38.1 pg (28.0-32.0); Mean Corpuscular Hgb Conc. 34.7 g/dL (32.0-36.0); Monocytes % (auto) 10.4 % (0.0-12.0); Neutrophils # (auto) 2.4 10 ^3/uL (1.6-8.6); Neutrophils % (auto) 73.6 % (37.0-80.0); Nucleated Red Blood Cells % 0.8 %; Red Blood Cells 3.57 10^6/uL (4.5-5.90); Red Cell Distribution Width 17.7 % (11.8-14.3); White Blood Cell 3.2 10^3/uL (4.4-10.8)
[2022-06-02 22:36] LABS: Calcium 8.3 mg/dL (8.5-10.1); Potassium 3.4 mmol/L (3.5-5.1)
[2022-06-02 22:41] LABS: Albumin 2.6 g/dL (3.4-5.0); BUN/Creatinine Ratio 12.9; Bilirubin, Total 3.8 mg/dL (0.2-1.0); Total Protein 7.6 g/dL (6.4-8.2)
[2022-06-03] MEDS ORDERED: MORPHINE SULFATE 4 MG/ML SYR/VIAL IV ONE (01:00)
[2022-06-03] MEDS ORDERED: ONDANSETRON HCL 4 MG/2 ML VIAL IV ONE (01:00)
[2022-06-03] MEDS ORDERED: THIAMINE 100mg/ml INJ (200mg/2ml VIAL) IV ONE (01:00)
[2022-06-03] MEDS ORDERED: metroNIDAZOLE 500MG/100ML 100 ML IV ONE (04:30)
[2022-06-03] MEDS ORDERED: cefTRIAXone 1GM/50ML D5W 50 ML IV ONE (04:30)
[2022-06-03] MEDS ORDERED: ACETAMINOPHEN 325 MG TAB PO PRN (06:15)
[2022-06-03] MEDS ORDERED: TEMAZEPAM 15 MG CAP PO PRN (06:15)
[2022-06-03] MEDS ORDERED: LORazepam 0.5 MG TAB PO PRN (06:15)
[2022-06-03] MEDS ORDERED: ALUM & MAG HYDROX-SIMETH LIQ(MAALOX) 30 ML PO PRN (06:15)
[2022-06-03] MEDS: MORPHINE SULFATE INJ 2 MG/ml SYRG IV PRN ×2 (08:11→22:08)
[2022-06-03] MEDS: ONDANSETRON HCL 4 MG/2 ML VIAL IV PRN ×2 (08:17→22:08)
[2022-06-03 08:29] LABS: Basophils # (auto) 0 10 ^3/uL (0-0.2); Eosinophils # (auto) 0 10 ^3/uL (0-0.8); Hemoglobin 12.4 g/dL (13.5-17.5); Lymphocytes # (auto) 0.4 10 ^3/uL (0.4-5.4); Monocytes # (auto) 0.4 10 ^3/uL (0-1.3); Red Blood Cells 3.33 10^6/uL (4.5-5.90); White Blood Cell 2.5 10^3/uL (4.4-10.8)
[2022-06-03 08:31] LABS: Basophils % (auto) 0.5 % (0.0-2.0); Eosinophils % (auto) 0.7 % (0.0-7.0); Hematocrit 36.4 % (41.0-53.0); Lymphocytes % (auto) 17.1 % (10.0-50.0); Mean Corpuscular Hemoglobin 37.1 pg (28.0-32.0); Mean Corpuscular Volume 109.3 fL (80.0-100.0); Monocytes % (auto) 16.2 % (0.0-12.0); Neutrophils # (auto) 1.6 10 ^3/uL (1.6-8.6); Neutrophils % (auto) 65.5 % (37.0-80.0); Nucleated Red Blood Cells % 1.6 %; Red Cell Distribution Width 18.1 % (11.8-14.3)
[2022-06-03 08:38] LABS: Calcium 7.5 mg/dL (8.5-10.1); Potassium 3.4 mmol/L (3.5-5.1)
[2022-06-03 08:44] LABS: Lactic Acid w/Reflex 5.3 mmol/L (0.4-2.0)
[2022-06-03] MEDS: SODIUM CHLORIDE 0.9% 1,000 ML IV SCH ×4 (09:37→22:08)
[2022-06-03 10:56] LABS: Albumin 1.9 g/dL (3.4-5.0); BUN/Creatinine Ratio 16.8; Potassium 3.3 mmol/L (3.5-5.1)
[2022-06-03 10:59] LABS: Bilirubin, Total 4.1 mg/dL (0.2-1.0); Total Protein 6.2 g/dL (6.4-8.2)
[2022-06-03] MEDS: HYDROcodone-ACET 5/325MG TAB PO PRN ×2 (12:46→18:18)
[2022-06-03] MEDS: DOCUSATE SOD 100 MG CAP PO PRN ×2 (12:46→18:19)
[2022-06-03 22:00] VITALS: BP 104/68
[2022-06-03] MEDS ORDERED: GABA100C9 PO (23:33)
[2022-06-03] MEDS ORDERED: IBUP600T27 PO (23:33)
[2022-06-04] MEDS: HYDROcodone-ACET 5/325MG TAB PO PRN ×4 (01:32→23:44)
[2022-06-04] MEDS: SODIUM CHLORIDE 0.9% 1,000 ML IV SCH ×3 (01:33→12:29)
[2022-06-04 05:00] VITALS: BP_SYST 103; BP_SYST 121; BP_DIAS 55; BP_DIAS 74
[2022-06-04] MEDS: MORPHINE SULFATE INJ 2 MG/ml SYRG IV PRN ×3 (05:21→21:29)
[2022-06-04] MEDS: ONDANSETRON HCL 4 MG/2 ML VIAL IV PRN ×2 (05:22→21:29)
[2022-06-04 08:30] VITALS: BP 113/72
[2022-06-04 12:30] VITALS: BP 97/69
[2022-06-04 17:00] VITALS: BP 102/67
[2022-06-04 22:00] VITALS: BP 101/71
[2022-06-05 05:00] VITALS: BP 117/83
[2022-06-05] MEDS: MORPHINE SULFATE INJ 2 MG/ml SYRG IV PRN ×3 (05:12→13:53)
[2022-06-05] MEDS: ONDANSETRON HCL 4 MG/2 ML VIAL IV PRN (05:13)
[2022-06-05 06:21] LABS: Albumin 1.9 g/dL (3.4-5.0); Calcium 7.3 mg/dL (8.5-10.1); Hematocrit 32.6 % (41.0-53.0); Mean Corpuscular Hgb Conc. 34.8 g/dL (32.0-36.0); Potassium 3.2 mmol/L (3.5-5.1); Red Blood Cells 3.03 10^6/uL (4.5-5.90); White Blood Cell 3.9 10^3/uL (4.4-10.8)
[2022-06-05 06:23] LABS: BUN/Creatinine Ratio 20.9
[2022-06-05 06:25] LABS: Hemoglobin 11.4 g/dL (13.5-17.5); Mean Corpuscular Hemoglobin 37.5 pg (28.0-32.0); Mean Corpuscular Volume 107.7 fL (80.0-100.0); Red Cell Distribution Width 17.6 % (11.8-14.3)
[2022-06-05 06:26] LABS: Bilirubin, Total 6.6 mg/dL (0.2-1.0); Total Protein 5.9 g/dL (6.4-8.2)
[2022-06-05 06:59] LABS: Basophils % (manual) 0 (0.0-2.0); Eosinophils % (manual) 0 (0-7); Metamyelocytes % 0; Myelocytes % 0; Promyelocytes % 0; Reactive Lymphocytes 0
[2022-06-05 07:55] LABS: INR 1.88 (0.9-1.15)
[2022-06-05 08:20] LABS: Band Neutrophils % (manual) 4; Blast Cells 2; Lymphocytes % (manual) 20 (10.0-50.0); Monocytes % (manual) 7 (0-12)
[2022-06-05 09:00] VITALS: BP 108/84
[2022-06-05] MEDS ORDERED: PANTOPRAZOLE 40 MG TAB PO SCH (10:00)
[2022-06-05] MEDS ORDERED: DEXTROSE (50%) 50ML SYRG IV PRN (10:30)
[2022-06-05] MEDS ORDERED: InsuLIN REG 1unit/0.01ml Soln (100units/ml) SC SCH ×2 (11:30→22:00)
[2022-06-05] MEDS ORDERED: ACCU-CHEK COMFORT CURVE STRIP VI SCH (11:30)
[2022-06-05 13:19] VITALS: BP 121/94
[2022-06-05 14:43] VITALS: BP 121/94
== END 2022-06-05 15:00 | disposition home or self-care (01) | DRG 282 ==
LOC: ER 21:36 → OVERFLOW 06-03 06:05 → EAST 06-03 21:09
PROVIDERS: ADMIT Hospitalist; ATTEND Internal Medicine
DX: K85.90 Acute pancreatitis without necrosis or infection, unspecified (principal); N17.0 Acute kidney failure with tubular necrosis; D61.818 Other pancytopenia; K70.9 Alcoholic liver disease, unspecified; K70.10 Alcoholic hepatitis without ascites; Z20.822 Contact with and (suspected) exposure to COVID-19; E11.9 Type 2 diabetes mellitus without complications; F17.210 Nicotine dependence, cigarettes, uncomplicated; I10 Essential (primary) hypertension; J44.9 Chronic obstructive pulmonary disease, unspecified; Z80.9 Family history of malignant neoplasm, unspecified; Z83.3 Family history of diabetes mellitus; K72.90 Hepatic failure, unspecified without coma
CPT/HCPCS: 36415; 74176; 80048; 80053; 82150; 82962; 83605; 83690; 84484; 85007; 85025; 85027; 85610; 87040; 87426; 96361; 96365; 96367; 96375; 96376; G0378; J0696; J1815; J2405; J3490

== ENCOUNTER 2022-06-18 11:30 | Inpatient (IN) | payer MEDICAID ==
[~2022-06-18] VITALS: Ht 180.3 cm; Wt 97.6 kg
[~2022-06-18 11:30] MED LIST changes: +GABA100C9 PO; -HYDR-4795 PO
[2022-06-18 12:31] LABS: Albumin 1.6 g/dL (3.4-5.0); Anion Gap 16 (5-15); Blood Urea Nitrogen 33 mg/dL (7-18); Calcium 7.5 mg/dL (8.5-10.1); Carbon Dioxide 25 mmol/L (21-32); Chloride 88 mmol/L (98-107); Glucose 77 mg/dL (74-106); Potassium 3.3 mmol/L (3.5-5.1); Sodium 129 mmol/L (136-145)
[2022-06-18 12:34] LABS: Alanine Aminotransferase 64 U/L (16-61); Alkaline Phosphatase 298 U/L (45-117); Aspartate Aminotransferase 521 U/L (15-37); Bilirubin, Total 23.6 mg/dL (0.2-1.0); GFR African American 17 mL/min; GFR Non-African American 14 mL/min; Total Protein 6.6 g/dL (6.4-8.2)
[2022-06-18 12:35] LABS: Eosinophils # (auto) 0 10 ^3/uL (0-0.8); Eosinophils % (auto) 0.2 % (0.0-7.0); Lymphocytes # (auto) 0.5 10 ^3/uL (0.4-5.4); Nucleated Red Blood Cells % 0.2 %
[2022-06-18 12:37] LABS: Basophils # (auto) 0.1 10 ^3/uL (0-0.2); Basophils % (auto) 0.3 % (0.0-2.0); Hematocrit 31.9 % (41.0-53.0); Hemoglobin 11.4 g/dL (13.5-17.5); Mean Corpuscular Hemoglobin 38.1 pg (28.0-32.0); Mean Corpuscular Hgb Conc. 35.8 g/dL (32.0-36.0); Mean Corpuscular Volume 106.4 fL (80.0-100.0); Monocytes # (auto) 0.9 10 ^3/uL (0-1.3); Monocytes % (auto) 5.6 % (0.0-12.0); Neutrophils % (auto) 90.9 % (37.0-80.0); Red Blood Cells 2.99 10^6/uL (4.5-5.90); Red Cell Distribution Width 18.4 % (11.8-14.3); White Blood Cell 15.4 10^3/uL (4.4-10.8)
[2022-06-18 12:40] LABS: INR 1.95 (0.9-1.15); Partial Thromboplastin Time 36.7 sec (24.6-33.4)
[2022-06-18] MEDS ORDERED: LACTULOSE 20Gm/30ML SOLN PO ONE (12:45)
[2022-06-18 13:00] LABS: Blood Alcohol < 3.0 mg/dL (0-5)
[2022-06-18] MEDS ORDERED: cefTRIAXone 1GM/50ML D5W 50 ML IV ONE (13:00)
[2022-06-18] MEDS ORDERED: ALBUMIN 25% 100 ML IV ONE (14:15)
[2022-06-18] MEDS ORDERED: DOCUSATE SOD 100 MG CAP PO PRN (15:30)
[2022-06-18] MEDS ORDERED: ACETAMINOPHEN 325 MG TAB PO PRN (15:30)
[2022-06-18] MEDS ORDERED: TEMAZEPAM 15 MG CAP PO PRN (15:30)
[2022-06-18] MEDS ORDERED: MORPHINE SULFATE INJ 2 MG/ml SYRG IV PRN (15:30)
[2022-06-18] MEDS ORDERED: LORazepam 0.5 MG TAB PO PRN (15:30)
[2022-06-18] MEDS ORDERED: MAALOX PLUS or MAALOX 30 ML PO PRN (15:30)
[2022-06-18] MEDS ORDERED: HYDROcodone-ACET 5/325MG TAB PO PRN (15:30)
[2022-06-18] MEDS ORDERED: ONDANSETRON HCL 4 MG/2 ML VIAL IV PRN (15:30)
[2022-06-18] MEDS: LORazepam 2MG/ML-1ML VIAL IV SCH ×5 (15:45→22:14)
[2022-06-18] MEDS: SODIUM CHLORIDE 0.9% 1,000 ML IV SCH (15:48)
[2022-06-18] MEDS ORDERED: phytonadione 10 MG in SODIUM CHL 0.9% 50 ML IV ONE (21:15)
[2022-06-18] MEDS: ALBUMIN 25% 50 ML IV SCH (22:03)
[2022-06-18] MEDS: methylPREDNISolone SOD SUCC 40 MG/ML VL IV SCH (22:10)
[2022-06-19] MEDS: LORazepam 2MG/ML-1ML VIAL IV SCH ×15 (00:45→23:45)
[2022-06-19] MEDS: ALBUMIN 25% 50 ML IV SCH ×2 (05:07→14:18)
[2022-06-19] MEDS: methylPREDNISolone SOD SUCC 40 MG/ML VL IV SCH ×3 (05:45→22:54)
[2022-06-19] MEDS: SODIUM CHLORIDE 0.9% 1,000 ML IV SCH (08:10)
[2022-06-19 09:56] LABS: Hematocrit 30.9 % (41.0-53.0); Hemoglobin 10.7 g/dL (13.5-17.5); Mean Corpuscular Hgb Conc. 34.7 g/dL (32.0-36.0); Mean Corpuscular Volume 106.8 fL (80.0-100.0); Red Cell Distribution Width 18.8 % (11.8-14.3); White Blood Cell 10.8 10^3/uL (4.4-10.8)
[2022-06-19] MEDS: MULTIPLE VITAMIN TAB PO SCH (10:00)
[2022-06-19] MEDS: FOLIC ACID 1 MG TAB PO SCH (10:00)
[2022-06-19] MEDS: cefTRIAXone 1GM/50ML D5W 50 ML IV SCH (10:00)
[2022-06-19] MEDS: chlordiazePOXIDE HCL 25 MG CAP PO SCH (10:00)
[2022-06-19] MEDS: THIAMINE 100mg/ml INJ (200mg/2ml VIAL) IV SCH (10:00)
[2022-06-19] MEDS: LACTULOSE 20Gm/30ML SOLN PO SCH (10:00)
[2022-06-19 10:12] LABS: Calcium 7.1 mg/dL (8.5-10.1); Potassium 3.1 mmol/L (3.5-5.1)
[2022-06-19 10:20] LABS: BUN/Creatinine Ratio 9.2; Total Protein 6.4 g/dL (6.4-8.2)
[2022-06-19 10:30] LABS: Basophils % (manual) 0 (0.0-2.0); Blast Cells 0; Eosinophils % (manual) 0 (0-7); Metamyelocytes % 0; Myelocytes % 0; Promyelocytes % 0; Reactive Lymphocytes 0
[2022-06-19] MEDS: OCTREOTIDE ACETATE 100 MCG/ML VL SUBCUT SCH ×2 (14:25→22:55)
[2022-06-19 15:49] LABS: Band Neutrophils % (manual) 4; Lymphocytes % (manual) 1 (10.0-50.0)
[2022-06-19 15:50] LABS: Monocytes % (manual) 1 (0-12)
[2022-06-19] MEDS: diphenhdrAMINE HCL 50 MG/1 ML VL IV PRN (17:16)
[2022-06-19] MEDS: POTASSIUM CHL 20MEQ/100ML 100 ML IV SCH ×2 (17:17→20:06)
[2022-06-20] MEDS: LORazepam 2MG/ML-1ML VIAL IV SCH ×13 (00:45→21:54)
[2022-06-20] MEDS: SODIUM CHLORIDE 0.9% 1,000 ML IV SCH (01:14)
[2022-06-20] MEDS: diphenhdrAMINE HCL 50 MG/1 ML VL IV PRN (03:35)
[2022-06-20 04:24] LABS: Urine Bacteria FEW /hpf (None Seen); Urine Blood 3+ /uL (Negative); Urine Hyaline Cast FEW /lpf (0 - 2); Urine Specific Gravity 1.012 (1.001-1.035); Urine WBC 4 /hpf (0 - 3)
[2022-06-20 05:06] LABS: Albumin 1.7 g/dL (3.4-5.0); Calcium 6.5 mg/dL (8.5-10.1)
[2022-06-20 05:14] LABS: Hematocrit 29.2 % (41.0-53.0); Hemoglobin 10.5 g/dL (13.5-17.5); Mean Corpuscular Hemoglobin 38.1 pg (28.0-32.0); Mean Corpuscular Hgb Conc. 35.8 g/dL (32.0-36.0); Mean Corpuscular Volume 106.4 fL (80.0-100.0); Red Blood Cells 2.75 10^6/uL (4.5-5.90); Red Cell Distribution Width 18.6 % (11.8-14.3); White Blood Cell 13.9 10^3/uL (4.4-10.8)
[2022-06-20 05:17] LABS: Bilirubin, Total 24.3 mg/dL (0.2-1.0)
[2022-06-20 05:49] LABS: Basophils % (manual) 0 (0.0-2.0); Blast Cells 0; Eosinophils % (manual) 0 (0-7); Metamyelocytes % 0; Myelocytes % 0; Promyelocytes % 0; Reactive Lymphocytes 0
[2022-06-20 06:00] LABS: Potassium 2.9 mmol/L (3.5-5.1)
[2022-06-20] MEDS: methylPREDNISolone SOD SUCC 40 MG/ML VL IV SCH ×3 (06:00→21:58)
[2022-06-20] MEDS: OCTREOTIDE ACETATE 100 MCG/ML VL SUBCUT SCH ×3 (06:02→22:04)
[2022-06-20] MEDS ORDERED: POTASSIUM CHL 20MEQ/100ML 100 ML IV ONE (06:15)
[2022-06-20 07:48] LABS: Band Neutrophils % (manual) 13; Lymphocytes % (manual) 4 (10.0-50.0); Monocytes % (manual) 3 (0-12)
[2022-06-20] MEDS: MULTIPLE VITAMIN TAB PO SCH (10:00)
[2022-06-20] MEDS: LACTULOSE 20Gm/30ML SOLN PO SCH (10:00)
[2022-06-20] MEDS: chlordiazePOXIDE HCL 25 MG CAP PO SCH (10:00)
[2022-06-20] MEDS: FOLIC ACID 1 MG TAB PO SCH (10:00)
[2022-06-20] MEDS: cefTRIAXone 1GM/50ML D5W 50 ML IV SCH (10:20)
[2022-06-20] MEDS: THIAMINE 100mg/ml INJ (200mg/2ml VIAL) IV SCH (10:22)
[2022-06-20] MEDS ORDERED: PANTOPRAZOLE 40 MG/10 ML VIAL INJ IV ONE (10:45)
[2022-06-20] MEDS: POTASSIUM CHL 20MEQ/100ML 100 ML IV SCH ×2 (12:09→14:05)
[2022-06-21] MEDS: LORazepam 2MG/ML-1ML VIAL IV SCH ×5 (00:52→14:14)
[2022-06-21] MEDS: methylPREDNISolone SOD SUCC 40 MG/ML VL IV SCH ×3 (06:37→22:49)
[2022-06-21] MEDS: OCTREOTIDE ACETATE 100 MCG/ML VL SUBCUT SCH ×3 (06:37→22:49)
[2022-06-21 06:53] LABS: Red Blood Cells 2.64 10^6/uL (4.5-5.90)
[2022-06-21 06:55] LABS: Hematocrit 28.4 % (41.0-53.0); Hemoglobin 10.1 g/dL (13.5-17.5); Mean Corpuscular Hemoglobin 38.4 pg (28.0-32.0); Mean Corpuscular Hgb Conc. 35.7 g/dL (32.0-36.0); Mean Corpuscular Volume 107.3 fL (80.0-100.0); Red Cell Distribution Width 18.6 % (11.8-14.3); White Blood Cell 23.7 10^3/uL (4.4-10.8)
[2022-06-21 06:56] LABS: Potassium 3.2 mmol/L (3.5-5.1)
[2022-06-21 07:08] LABS: Albumin 1.7 g/dL (3.4-5.0); BUN/Creatinine Ratio 24.3; Calcium 6.1 mg/dL (8.5-10.1); Total Protein 5.8 g/dL (6.4-8.2)
[2022-06-21 07:27] LABS: Bilirubin, Total 23.4 mg/dL (0.2-1.0)
[2022-06-21 08:28] LABS: Basophils % (manual) 0 (0.0-2.0); Blast Cells 0; Metamyelocytes % 0; Myelocytes % 0; Promyelocytes % 0; Reactive Lymphocytes 0
[2022-06-21] MEDS: chlordiazePOXIDE HCL 25 MG CAP PO SCH (10:00)
[2022-06-21] MEDS: LACTULOSE 20Gm/30ML SOLN PO SCH (10:00)
[2022-06-21] MEDS: PANTOPRAZOLE 40 MG/10 ML VIAL INJ IV SCH (11:00)
[2022-06-21] MEDS: cefTRIAXone 1GM/50ML D5W 50 ML IV SCH (11:00)
[2022-06-21] MEDS ORDERED: DEXTROSE (50%) 50ML SYRG IV PRN (12:00)
[2022-06-21] MEDS: ACCU-CHEK COMFORT CURVE STRIP VI SCH ×2 (12:00→18:00)
[2022-06-21] MEDS: InsuLIN REG 1unit/0.01ml Soln (100units/ml) SC SCH ×2 (12:33→18:00)
[2022-06-21] MEDS: ALBUMIN 25% 100 ML IV SCH ×2 (12:49→21:03)
[2022-06-21 13:07] LABS: Band Neutrophils % (manual) 9; Eosinophils % (manual) 1 (0-7); Lymphocytes % (manual) 2 (10.0-50.0); Monocytes % (manual) 3 (0-12)
[2022-06-21] MEDS: FOLIC ACID 1 MG, MULTIPLE VITAMIN 10 ML, MAGNESIUM SULF SDV 50% 8 MEQ, THIAMINE INJ 100... INJ SCH ×5 (13:07)
[2022-06-21] MEDS: diphenhdrAMINE HCL 50 MG/1 ML VL IV PRN (16:48)
[2022-06-21] MEDS ORDERED: diphenhdrAMINE HCL 50 MG/1 ML VL IV PRN (17:45)
[2022-06-21] MEDS: LORazepam 2MG/ML-1ML VIAL IV PRN (23:02)
[2022-06-22] MEDS: ACCU-CHEK COMFORT CURVE STRIP VI SCH ×4 (00:28→18:18)
[2022-06-22] MEDS: InsuLIN REG 1unit/0.01ml Soln (100units/ml) SC SCH ×4 (00:45→18:22)
[2022-06-22] MEDS: ALBUMIN 25% 100 ML IV SCH (04:38)
[2022-06-22 05:29] LABS: Urine Bacteria FEW /hpf (None Seen); Urine Blood 3+ /uL (Negative); Urine Mucus FEW (None Seen); Urine Specific Gravity 1.016 (1.001-1.035); Urine WBC 76 /hpf (0 - 3)
[2022-06-22] MEDS: methylPREDNISolone SOD SUCC 40 MG/ML VL IV SCH ×3 (05:55→21:20)
[2022-06-22] MEDS: OCTREOTIDE ACETATE 100 MCG/ML VL SUBCUT SCH ×3 (06:08→22:00)
[2022-06-22 06:31] LABS: Hematocrit 26.2 % (41.0-53.0); Hemoglobin 9.4 g/dL (13.5-17.5); Mean Corpuscular Hemoglobin 38.4 pg (28.0-32.0); Mean Corpuscular Volume 106.6 fL (80.0-100.0); Red Blood Cells 2.46 10^6/uL (4.5-5.90); Red Cell Distribution Width 19.4 % (11.8-14.3); White Blood Cell 19.2 10^3/uL (4.4-10.8)
[2022-06-22 06:35] LABS: Basophils % (manual) 0 (0.0-2.0); Blast Cells 0; Eosinophils % (manual) 0 (0-7); Metamyelocytes % 0; Myelocytes % 0; Promyelocytes % 0; Reactive Lymphocytes 0
[2022-06-22 07:03] LABS: Albumin 2.4 g/dL (3.4-5.0); BUN/Creatinine Ratio 29.3; Calcium 6.5 mg/dL (8.5-10.1)
[2022-06-22 07:22] LABS: Potassium 2.8 mmol/L (3.5-5.1)
[2022-06-22 07:24] LABS: Bilirubin, Total 26.6 mg/dL (0.2-1.0)
[2022-06-22] MEDS: POTASSIUM CHL 20MEQ/100ML 100 ML IV SCH ×2 (08:41→10:17)
[2022-06-22 08:46] LABS: Band Neutrophils % (manual) 27; Lymphocytes % (manual) 1 (10.0-50.0); Monocytes % (manual) 4 (0-12)
[2022-06-22] MEDS: cefTRIAXone 1GM/50ML D5W 50 ML IV SCH (09:30)
[2022-06-22] MEDS: chlordiazePOXIDE HCL 25 MG CAP PO SCH (10:00)
[2022-06-22] MEDS: LACTULOSE 20Gm/30ML SOLN PO SCH (10:00)
[2022-06-22] MEDS: PANTOPRAZOLE 40 MG/10 ML VIAL INJ IV SCH (10:00)
[2022-06-22 10:44] LABS: Protein, Urine 63.9 mg/dL (0.0-11.9)
[2022-06-22] MEDS: FOLIC ACID 1 MG, MULTIPLE VITAMIN 10 ML, MAGNESIUM SULF SDV 50% 8 MEQ, THIAMINE INJ 100... INJ SCH ×5 (12:00)
[2022-06-22 22:00] VITALS: BP 139/64
[2022-06-22] MEDS ORDERED: TRAZ50TA2 PO (22:39)
[2022-06-22] MEDS ORDERED: POTA-180 PO (22:39)
[2022-06-22] MEDS ORDERED: ENAL10TA13 PO (22:39)
[2022-06-22] MEDS ORDERED: GAB100C PO (22:39)
[2022-06-22] MEDS ORDERED: FURO40TA4 PO (22:39)
[2022-06-23] MEDS: ACCU-CHEK COMFORT CURVE STRIP VI SCH ×5 (00:56→23:40)
[2022-06-23] MEDS: InsuLIN REG 1unit/0.01ml Soln (100units/ml) SC SCH ×5 (01:08→23:41)
[2022-06-23 05:00] VITALS: BP 142/90
[2022-06-23 05:11] LABS: Hematocrit 28.5 % (41.0-53.0); Hemoglobin 9.7 g/dL (13.5-17.5); Mean Corpuscular Hemoglobin 36.8 pg (28.0-32.0); Mean Corpuscular Volume 108.3 fL (80.0-100.0); Red Blood Cells 2.63 10^6/uL (4.5-5.90); Red Cell Distribution Width 19.1 % (11.8-14.3); White Blood Cell 16.2 10^3/uL (4.4-10.8)
[2022-06-23 05:13] LABS: Basophils # (auto) 0 10 ^3/uL (0-0.2); Basophils % (auto) 0.2 % (0.0-2.0); Eosinophils # (auto) 0 10 ^3/uL (0-0.8); Lymphocytes # (auto) 0.3 10 ^3/uL (0.4-5.4); Lymphocytes % (auto) 1.9 % (10.0-50.0); Monocytes # (auto) 0.9 10 ^3/uL (0-1.3); Monocytes % (auto) 5.5 % (0.0-12.0); Neutrophils # (auto) 15.3 10 ^3/uL (1.6-8.6); Neutrophils % (auto) 92.4 % (37.0-80.0)
[2022-06-23 05:14] LABS: Basophils % (manual) 0 (0.0-2.0); Blast Cells 0; Eosinophils % (manual) 0 (0-7); Metamyelocytes % 0; Myelocytes % 0; Promyelocytes % 0; Reactive Lymphocytes 0
[2022-06-23 05:41] LABS: Albumin 2.2 g/dL (3.4-5.0); BUN/Creatinine Ratio 30.8; Calcium 6.8 mg/dL (8.5-10.1)
[2022-06-23 05:43] LABS: Potassium 2.7 mmol/L (3.5-5.1)
[2022-06-23 05:52] LABS: Bilirubin, Total 28.4 mg/dL (0.2-1.0); Total Protein 5.8 g/dL (6.4-8.2)
[2022-06-23] MEDS: methylPREDNISolone SOD SUCC 40 MG/ML VL IV SCH ×3 (05:56→21:23)
[2022-06-23 06:52] LABS: Band Neutrophils % (manual) 4; Lymphocytes % (manual) 2 (10.0-50.0); Monocytes % (manual) 6 (0-12)
[2022-06-23] MEDS: POTASSIUM CHL 20MEQ/100ML 100 ML IV SCH ×2 (07:29→08:45)
[2022-06-23] MEDS: OCTREOTIDE ACETATE 100 MCG/ML VL SUBCUT SCH ×3 (07:37→21:24)
[2022-06-23 09:00] VITALS: BP 145/73
[2022-06-23] MEDS: LACTULOSE 20Gm/30ML SOLN PO SCH (10:00)
[2022-06-23] MEDS: PANTOPRAZOLE 40 MG/10 ML VIAL INJ IV SCH (11:06)
[2022-06-23] MEDS: chlordiazePOXIDE HCL 25 MG CAP PO SCH (11:07)
[2022-06-23] MEDS: cefTRIAXone 1GM/50ML D5W 50 ML IV SCH (11:07)
[2022-06-23 13:00] VITALS: BP 136/73
[2022-06-23] MEDS: FOLIC ACID 1 MG, MULTIPLE VITAMIN 10 ML, MAGNESIUM SULF SDV 50% 8 MEQ, THIAMINE INJ 100... INJ SCH ×5 (13:00)
[2022-06-23 16:56] VITALS: BP 128/76
[2022-06-23 22:07] VITALS: BP 120/78
[2022-06-24 05:20] VITALS: BP 119/84
[2022-06-24] MEDS: ACCU-CHEK COMFORT CURVE STRIP VI SCH ×4 (05:29→23:12)
[2022-06-24] MEDS: InsuLIN REG 1unit/0.01ml Soln (100units/ml) SC SCH ×4 (05:33→23:05)
[2022-06-24] MEDS: methylPREDNISolone SOD SUCC 40 MG/ML VL IV SCH ×2 (05:37→14:18)
[2022-06-24] MEDS: OCTREOTIDE ACETATE 100 MCG/ML VL SUBCUT SCH ×3 (05:38→23:04)
[2022-06-24 06:28] LABS: Basophils # (auto) 0.1 10 ^3/uL (0-0.2); Eosinophils # (auto) 0 10 ^3/uL (0-0.8); Hemoglobin 9.5 g/dL (13.5-17.5); Lymphocytes # (auto) 0.3 10 ^3/uL (0.4-5.4); Mean Corpuscular Volume 109.9 fL (80.0-100.0); Monocytes # (auto) 1.1 10 ^3/uL (0-1.3); Nucleated Red Blood Cells % 0.3 %; Red Blood Cells 2.55 10^6/uL (4.5-5.90); White Blood Cell 13.5 10^3/uL (4.4-10.8)
[2022-06-24 06:31] LABS: Basophils % (auto) 0.4 % (0.0-2.0); Lymphocytes % (auto) 2.4 % (10.0-50.0); Mean Corpuscular Hemoglobin 37.2 pg (28.0-32.0); Mean Corpuscular Hgb Conc. 33.8 g/dL (32.0-36.0); Monocytes % (auto) 8.3 % (0.0-12.0); Neutrophils % (auto) 88.9 % (37.0-80.0)
[2022-06-24 06:34] LABS: Red Cell Distribution Width 20.1 % (11.8-14.3)
[2022-06-24 07:08] LABS: Potassium 3.4 mmol/L (3.5-5.1)
[2022-06-24 07:13] LABS: Albumin 2.1 g/dL (3.4-5.0); BUN/Creatinine Ratio 28.9; Calcium 7.5 mg/dL (8.5-10.1)
[2022-06-24 07:28] LABS: Bilirubin, Total 28.6 mg/dL (0.2-1.0); Total Protein 5.7 g/dL (6.4-8.2)
[2022-06-24 09:00] VITALS: BP 148/80
[2022-06-24] MEDS ORDERED: D5W 5% 1,000 ML IV SCH (09:00)
[2022-06-24] MEDS: chlordiazePOXIDE HCL 25 MG CAP PO SCH (10:00)
[2022-06-24] MEDS: PANTOPRAZOLE 40 MG/10 ML VIAL INJ IV SCH (10:03)
[2022-06-24] MEDS: cefTRIAXone 1GM/50ML D5W 50 ML IV SCH (10:03)
[2022-06-24] MEDS: LACTULOSE 20Gm/30ML SOLN PO SCH ×3 (10:03→23:11)
[2022-06-24 13:00] VITALS: BP 131/63
[2022-06-24] MEDS: FOLIC ACID 1 MG, MULTIPLE VITAMIN 10 ML, MAGNESIUM SULF SDV 50% 8 MEQ, THIAMINE INJ 100... INJ SCH ×5 (13:02)
[2022-06-24 17:00] VITALS: BP 137/68
[2022-06-24] MEDS: D5W 5% 1,000 ML IV SCH (20:00)
[2022-06-24 22:00] VITALS: BP 119/82
[2022-06-24] MEDS: LORazepam 2MG/ML-1ML VIAL IV PRN (23:35)
[2022-06-25 05:00] VITALS: BP 119/77
[2022-06-25] MEDS: OCTREOTIDE ACETATE 100 MCG/ML VL SUBCUT SCH ×3 (05:30→22:49)
[2022-06-25] MEDS: LACTULOSE 20Gm/30ML SOLN PO SCH (05:31)
[2022-06-25] MEDS: ACCU-CHEK COMFORT CURVE STRIP VI SCH ×4 (05:31→22:51)
[2022-06-25] MEDS: InsuLIN REG 1unit/0.01ml Soln (100units/ml) SC SCH ×4 (05:32→23:12)
[2022-06-25 05:48] LABS: Basophils # (auto) 0 10 ^3/uL (0-0.2); Eosinophils # (auto) 0 10 ^3/uL (0-0.8); Hemoglobin 9.7 g/dL (13.5-17.5); Lymphocytes # (auto) 0.7 10 ^3/uL (0.4-5.4); Lymphocytes % (auto) 5.8 % (10.0-50.0); Monocytes # (auto) 1.2 10 ^3/uL (0-1.3); Monocytes % (auto) 9.8 % (0.0-12.0)
[2022-06-25 05:50] LABS: Basophils % (auto) 0.2 % (0.0-2.0); Eosinophils % (auto) 0.2 % (0.0-7.0); Hematocrit 29.2 % (41.0-53.0); Mean Corpuscular Hemoglobin 37.3 pg (28.0-32.0); Mean Corpuscular Hgb Conc. 33.3 g/dL (32.0-36.0); Mean Corpuscular Volume 111.9 fL (80.0-100.0); Neutrophils # (auto) 10.2 10 ^3/uL (1.6-8.6); Nucleated Red Blood Cells % 0.7 %; Red Blood Cells 2.61 10^6/uL (4.5-5.90); White Blood Cell 12.1 10^3/uL (4.4-10.8)
[2022-06-25 05:54] LABS: Red Cell Distribution Width 20.8 % (11.8-14.3)
[2022-06-25] MEDS: D5W 5% 1,000 ML IV SCH ×3 (06:02→22:50)
[2022-06-25 06:07] LABS: BUN/Creatinine Ratio 26.4; Calcium 7.9 mg/dL (8.5-10.1); INR 1.54 (0.9-1.15); Partial Thromboplastin Time 26.6 sec (24.6-33.4); Potassium 3.2 mmol/L (3.5-5.1)
[2022-06-25 06:19] LABS: Bilirubin, Total 29.2 mg/dL (0.2-1.0); Total Protein 5.4 g/dL (6.4-8.2)
[2022-06-25] MEDS ORDERED: LACTULOSE 10g/15ml SOLN 473ML PR ONE (07:15)
[2022-06-25 08:00] VITALS: BP 146/82
[2022-06-25] MEDS: PANTOPRAZOLE 40 MG/10 ML VIAL INJ IV SCH (08:50)
[2022-06-25] MEDS: cefTRIAXone 1GM/50ML D5W 50 ML IV SCH (08:50)
[2022-06-25] MEDS ORDERED: methylPREDNISolone SOD SUCC 40 MG/ML VL IV SCH (10:00)
[2022-06-25] MEDS: methylPREDNISolone SOD SUCC 40 MG/ML VL IV SCH (10:00)
[2022-06-25] MEDS ORDERED: POTASSIUM CHLORIDE 40 MEQ, LIDOCAINE 1% (LOCAL ANESTH.) 4 ML in SODIUM CHL 0.9% 250 ML IV ONE (10:00)
[2022-06-25 12:00] VITALS: BP 131/71
[2022-06-25 16:00] VITALS: BP 124/74
[2022-06-25 20:00] VITALS: BP 104/62
[2022-06-25] MEDS: LORazepam 2MG/ML-1ML VIAL IV PRN (20:17)
[2022-06-25 22:00] VITALS: BP 104/67
[2022-06-25] MEDS: URSODIOL 300 MG CAP PO SCH (22:49)
[2022-06-25] MEDS: FREE WATER NG SCH ×2 (22:50→23:03)
[2022-06-25] MEDS: LACTULOSE 20Gm/30ML SOLN NG SCH (22:51)
[2022-06-26] MEDS: FREE WATER NG SCH ×6 (02:35→21:45)
[2022-06-26 05:00] VITALS: BP 105/75
[2022-06-26] MEDS: LACTULOSE 20Gm/30ML SOLN NG SCH ×3 (05:20→21:41)
[2022-06-26] MEDS: OCTREOTIDE ACETATE 100 MCG/ML VL SUBCUT SCH ×3 (05:20→21:43)
[2022-06-26] MEDS: ACCU-CHEK COMFORT CURVE STRIP VI SCH ×4 (05:21→23:58)
[2022-06-26] MEDS: InsuLIN REG 1unit/0.01ml Soln (100units/ml) SC SCH ×4 (05:49→23:58)
[2022-06-26 06:54] LABS: Potassium 4.1 mmol/L (3.5-5.1)
[2022-06-26 07:00] LABS: Basophils # (auto) 0.1 10 ^3/uL (0-0.2); Eosinophils # (auto) 0 10 ^3/uL (0-0.8); Eosinophils % (auto) 0.2 % (0.0-7.0); Lymphocytes # (auto) 0.4 10 ^3/uL (0.4-5.4)
[2022-06-26 07:03] LABS: Basophils % (auto) 0.4 % (0.0-2.0); Hematocrit 28.6 % (41.0-53.0); Hemoglobin 9.5 g/dL (13.5-17.5); Mean Corpuscular Hemoglobin 37.9 pg (28.0-32.0); Mean Corpuscular Hgb Conc. 33.4 g/dL (32.0-36.0); Mean Corpuscular Volume 113.7 fL (80.0-100.0); Monocytes # (auto) 0.6 10 ^3/uL (0-1.3); Monocytes % (auto) 5.2 % (0.0-12.0); Neutrophils # (auto) 11.4 10 ^3/uL (1.6-8.6); Neutrophils % (auto) 91.2 % (37.0-80.0); Nucleated Red Blood Cells % 0.9 %; Red Blood Cells 2.51 10^6/uL (4.5-5.90); White Blood Cell 12.5 10^3/uL (4.4-10.8)
[2022-06-26 07:07] LABS: Albumin 1.8 g/dL (3.4-5.0); BUN/Creatinine Ratio 25.8
[2022-06-26 07:18] LABS: Bilirubin, Total 27.8 mg/dL (0.2-1.0); Total Protein 5.1 g/dL (6.4-8.2)
[2022-06-26 07:23] LABS: Red Cell Distribution Width 21.2 % (11.8-14.3)
[2022-06-26 08:00] VITALS: BP 139/77
[2022-06-26] MEDS: POTASSIUM CHL 20MEQ/100ML 100 ML IV SCH (10:00)
[2022-06-26] MEDS: methylPREDNISolone SOD SUCC 40 MG/ML VL IV SCH (10:34)
[2022-06-26] MEDS: PANTOPRAZOLE 40 MG/10 ML VIAL INJ IV SCH (10:34)
[2022-06-26] MEDS: D5W 5% 1,000 ML IV SCH ×3 (10:34→21:44)
[2022-06-26] MEDS: cefTRIAXone 1GM/50ML D5W 50 ML IV SCH (10:35)
[2022-06-26] MEDS: URSODIOL 300 MG CAP PO SCH ×2 (10:35→21:41)
[2022-06-26 11:56] VITALS: BP 116/61
[2022-06-26 16:00] VITALS: BP 110/53
[2022-06-26 22:00] VITALS: BP 112/77
[2022-06-26] MEDS: LORazepam 2MG/ML-1ML VIAL IV PRN (23:57)
[2022-06-27] MEDS: FREE WATER NG SCH ×5 (02:40→16:57)
[2022-06-27] MEDS: D5W 5% 1,000 ML IV SCH ×3 (03:40→16:57)
[2022-06-27 05:00] VITALS: BP 123/45
[2022-06-27] MEDS: OCTREOTIDE ACETATE 100 MCG/ML VL SUBCUT SCH ×2 (05:51→13:12)
[2022-06-27] MEDS: ACCU-CHEK COMFORT CURVE STRIP VI SCH ×3 (05:52→16:57)
[2022-06-27] MEDS: InsuLIN REG 1unit/0.01ml Soln (100units/ml) SC SCH ×3 (05:59→16:58)
[2022-06-27 06:42] LABS: Potassium 3.8 mmol/L (3.5-5.1)
[2022-06-27 06:56] LABS: BUN/Creatinine Ratio 21.5; Calcium 8.2 mg/dL (8.5-10.1)
[2022-06-27 09:00] VITALS: BP 85/56
[2022-06-27] MEDS: LACTULOSE 20Gm/30ML SOLN NG SCH (10:19)
[2022-06-27] MEDS: PANTOPRAZOLE 40 MG/10 ML VIAL INJ IV SCH (10:19)
[2022-06-27] MEDS: URSODIOL 300 MG CAP PO SCH (10:19)
[2022-06-27] MEDS: POTASSIUM CHL 20MEQ/100ML 100 ML IV SCH (10:19)
[2022-06-27 12:25] VITALS: BP 94/61
[2022-06-27 16:59] VITALS: BP 97/57
[2022-06-27 22:00] VITALS: BP 94/65
[2022-06-28] MEDS: LACTULOSE 20Gm/30ML SOLN NG SCH (01:11)
[2022-06-28] MEDS: URSODIOL 300 MG CAP PO SCH (01:12)
[2022-06-28] MEDS: ACCU-CHEK COMFORT CURVE STRIP VI SCH ×2 (01:12→05:42)
[2022-06-28] MEDS: OCTREOTIDE ACETATE 100 MCG/ML VL SUBCUT SCH ×2 (01:13→05:43)
[2022-06-28] MEDS: InsuLIN REG 1unit/0.01ml Soln (100units/ml) SC SCH ×2 (01:57→05:59)
[2022-06-28] MEDS: FREE WATER NG SCH ×3 (02:01→05:42)
[2022-06-28] MEDS: D5W 5% 1,000 ML IV SCH (04:51)
[2022-06-28 05:00] VITALS: BP 95/50
[2022-06-28 05:31] LABS: Basophils # (auto) 0 10 ^3/uL (0-0.2); Basophils % (auto) 0.1 % (0.0-2.0); Eosinophils # (auto) 0.1 10 ^3/uL (0-0.8); Eosinophils % (auto) 0.8 % (0.0-7.0); Hematocrit 29.5 % (41.0-53.0); Hemoglobin 9.8 g/dL (13.5-17.5); Lymphocytes # (auto) 0.4 10 ^3/uL (0.4-5.4); Lymphocytes % (auto) 2.7 % (10.0-50.0); Mean Corpuscular Hemoglobin 37.6 pg (28.0-32.0); Mean Corpuscular Hgb Conc. 33.2 g/dL (32.0-36.0); Monocytes # (auto) 0.6 10 ^3/uL (0-1.3); Monocytes % (auto) 4.3 % (0.0-12.0); Neutrophils # (auto) 13.9 10 ^3/uL (1.6-8.6); Neutrophils % (auto) 92.1 % (37.0-80.0); Nucleated Red Blood Cells % 0.1 %; Red Blood Cells 2.61 10^6/uL (4.5-5.90); White Blood Cell 15.1 10^3/uL (4.4-10.8)
[2022-06-28 05:32] LABS: Red Cell Distribution Width 21.2 % (11.8-14.3)
[2022-06-28 05:37] LABS: Albumin 1.6 g/dL (3.4-5.0); BUN/Creatinine Ratio 22.1; Calcium 7.9 mg/dL (8.5-10.1); Magnesium 1.3 mg/dL (1.6-2.6); Potassium 3.9 mmol/L (3.5-5.1)
[2022-06-28 05:49] LABS: Bilirubin, Total 27.9 mg/dL (0.2-1.0); Total Protein 4.8 g/dL (6.4-8.2)
[2022-06-28 09:00] VITALS: BP 88/54
[2022-06-28 09:50] VITALS: BP 88/54
[2022-06-28] MEDS ORDERED: MIDODRINE HCL 10 MG TAB PO SCH (12:00)
== END 2022-06-28 12:49 | disposition hospice, home (50) | DRG 280 ==
LOC: EDBD 11:30 → ER 11:30 → TELE 15:33 → TELE-CENTR 06-22 20:45
PROVIDERS: ADMIT Hospitalist; ATTEND Internal Medicine
PROC: 05HA33Z Insertion of Infusion Device into Left Brachial Vein, Percutaneous Approach (ICD-10-PCS; 2022-06-21)
PROC: B54NZZA Ultrasonography of Left Upper Extremity Veins, Guidance (ICD-10-PCS; 2022-06-21)
PROC: 5A09357 Assistance with Respiratory Ventilation, Less than 24 Consecutive Hours, Continuous Positive Airway Pressure (ICD-10-PCS; principal; 2022-06-22)
DX: K76.82 Hepatic encephalopathy (principal); K70.31 Alcoholic cirrhosis of liver with ascites; N17.0 Acute kidney failure with tubular necrosis; K76.7 Hepatorenal syndrome; G93.41 Metabolic encephalopathy; K85.90 Acute pancreatitis without necrosis or infection, unspecified; E44.0 Moderate protein-calorie malnutrition; K65.9 Peritonitis, unspecified; Z20.822 Contact with and (suspected) exposure to COVID-19; E88.09 Other disorders of plasma-protein metabolism, not elsewhere classified; E87.1 Hypo-osmolality and hyponatremia; B18.2 Chronic viral hepatitis C; E66.9 Obesity, unspecified; F10.229 Alcohol dependence with intoxication, unspecified; F10.239 Alcohol dependence with withdrawal, unspecified; F17.210 Nicotine dependence, cigarettes, uncomplicated; J44.9 Chronic obstructive pulmonary disease, unspecified; E87.6 Hypokalemia; I12.9 Hypertensive chronic kidney disease with stage 1 through stage 4 chronic kidney disease, or unspecified chronic kidney disease; E11.22 Type 2 diabetes mellitus with diabetic chronic kidney disease; E11.65 Type 2 diabetes mellitus with hyperglycemia; N18.9 Chronic kidney disease, unspecified; E87.0 Hyperosmolality and hypernatremia; Z78.1 Physical restraint status; Z68.29 Body mass index [BMI] 29.0-29.9, adult; Z83.3 Family history of diabetes mellitus; Z80.9 Family history of malignant neoplasm, unspecified
CPT/HCPCS: 36415; 70450; 71045; 76705; 76775; 80048; 80053; 80320; 81001; 82140; 82570; 82962; 83690; 83735; 84132; 84156; 84300; 84484; 85007; 85025; 85027; 85610; 85730; 87081; 87205; 87426; 89051; 93005; 96361; 96365; 96368; 99291; C9113; G0378; J0696; J1815; J2001; J3430; J3480; P9047